=== PATIENT | male | born 1995 | race Caucasian/White ===

== ENCOUNTER 2019-04-19 01:50 | Emergency (ER) | payer SELFPAY ==
[~2019-04-19] VITALS: Ht 180.3 cm; Wt 77.1 kg
[2019-04-19 02:03] VITALS: BP 148/78
[2019-04-19] MEDS ORDERED: ADACEL VIAL IM ONE (02:15)
--- NOTE | 2019-04-19 02:17 | NUR ---
TETANUS GIVEN GIVEN IN RIGHT DELTOID LOT [id number] EXP 04/28/21 G ADACEL
[2019-04-19] MEDS ORDERED: LIDOCAINE 1% VIAL SQ ONE (02:30)
[2019-04-19] MEDS ORDERED: TENIVAC SYRINGE IM ONE (02:30)
[2019-04-19] MEDS ORDERED: TRIPLE ANTIBIOTIC OINTMENT TP ONE (02:48)
--- NOTE | 2019-04-19 02:58 | ER.PDOC ---
General Chief Complaint: Animal Bite Stated Complaint: DOG BITE Time seen by MD: 02:30 Source: patient Exam Limitations: no limitations History of Present Illness Initial Comments Patient has multiple puncture wounds of left arm/hand from dog bite wound. Injury happened three hours before arrival. Patient was bitten by his own dog who was trying to fight another dog. His dog has his rabies vaccine. Patient is unsure if he had his Tetanus shot. Patient was drinking alcohol prior to arrival. Onset: just prior to arrival Where: other (friends) Animal: dog Animal Appearance: appeared well Animal Immunizations: UTD Animal Disposition: Animal Known, Can Be Observed Context of Attack: animals fighting Severity of Injury: bitten Injury Location: upper extremity (LUE) Associated Symptoms: tingling, numbness, pain on movement Allergies: Coded Allergies: No Known Allergies (Unverified , 04/19/19) Past Medical History Medical History: no pertinent history Surgical History: no surgical history Social History Smoking: cigarettes Alcohol Use: occassionally Drug Use: marijuana Reviewed Nursing Reviewed: Vital Signs, Abn. Noted, Nursing Assessment Review of Systems Constitutional: no symptoms reported Eyes: no symptoms reported Ears: no symptoms reported Nose: no symptoms reported Mouth: no symptoms reported Throat: no symptoms reported Respiratory: no symptoms reported Cardiovascular: no symptoms reported Gastrointestinal: no symptoms reported Genitourinary: no symptoms reported Musculoskeletal: no symptoms reported Skin: lesions, other (laceration) Psychiatric/Neurological: no symptoms reported All Other Systems: Reviewed and Negative Physical Exam General Appearance: alert, no distress Skin: puncture, laceration Neuro/Vascular/Tendon: no vascular compromise, sensation nml, oriented x3, nml ROM, CN's nml as tested Psych: mood/affect nml HEENT: atraumatic Neck: uninjured, nml inspection Resp/CVS: chest non-tender Abdomen: nml inspection Back: nml inspection Extremities: see diagram Comments Patient has multiple small abrasion of left hand. Two deep/wide lacerations of left forearm. First is anterior/proximal to radial styloid of left forearm. Second laceration was on ulnar portion of forearm. ED LACERATION WOUND REPAIR # of Wounds/Lacerations Presen: 2 Wound Length (cm): 4 Wound cleaned: hibiclens (and copious irrigation with Normal Saline) Distal NVT: neuro intact, vasc intact Anesthesia type: local Anesthesia: 1% Lidocaine Volume Anesthetic (ccs): 8 Wound's Depth, Shape: superficial, linear Irrigated w/ Saline (ccs): 300 Wound Explored: no foreign body removed Tendon Intact: Yes Wound Debrided: minimal Wound Repaired With: sutures Suture Size/Type: 4:0, prolene Suture Style: simple Number of Sutures: 2 Layer Closure?: No Number Deep Layer Sutures: 1 Results/Orders Results/Orders Orders - SEBASTIAN MARQUEZ MD Tetanus-Diphtheria Toxoids/Pf (Tenivac S (04/19/19 02:30) Lidocaine Hcl (Lidocaine 1% Vial) (04/19/19 02:30) Ketorolac Tromethamine (Toradol) (04/19/19 03:30) Vital Signs Date Time Temp Pulse Resp B/P (MAP) Pulse Ox O2 Delivery O2 Flow Rate FiO2 04/19/19 02:03 98.4 118 16 98 Room Air 04/19/19 02:03 98.4 118 16 148/78 (101) 98 Room Air 04/19/19 02:03 98.4 118 16 Course Sepsis Screening Results: Posi: POSITIVE SEPSIS RISK Vitals & review Data Vital Sign - Last 24 Hours 04/19/19 04/19/19 04/19/19 02:03 02:03 02:03 Temp 98.4 98.4 98.4 Pulse 118 118 118 Resp 16 16 16 B/P (MAP) 148/78 (101) Pulse Ox 98 98 O2 Delivery Room Air Room Air Sepsis Infection Criteria Pres: None O2 Sat by Pulse Oximetry: 98 Departure Time of Disposition: 03:00 Disposition: 01 HOME, SELF-CARE Impression: Primary Impression: Dog bite Additional Impression: Laceration of forearm Condition: Stable Referrals: PCP,UNKNOWN (PCP) PRIMARY CARE PROVIDER Additional Instructions: Patient had dog bite wound of left forearm with multiple puncture wounds and lesions. 2 lacs required suturing. I informed patient that typically dog bite wounds are not closed; however, his lesions were to deep/wide to not be closed. Lesions were copiously irrigated with Normal Saline prior to closure. Patient agreeable to procedure. Patient was not sure about Tetanus status so TDAP given. After suturing, lesions had topical abx applied and appropriate dressings placed. Patient will be d/c on PO course of abx. Patient informed he needed to see PCP in 2-3 days. Patient can come back to ER for evaluation if needed. Patient given very strict return precautions. Patient was neurovascularly intact on presentation, following suturing, and after application of wound dressings. Patient counseled to take Ibuprofen for pain/swelling. Wound care instructions given prior to d/c. Duration or Time Spent with Pa: 60 minutes Problem Qualifiers Primary Impression: Dog bite Encounter type: initial encounter Qualified Codes: W54.0XXA - Bitten by dog, initial encounter Additional Impression: Laceration of forearm Encounter type: initial encounter Laterality: left Qualified Codes: S51.812A - Laceration without foreign body of left forearm, initial encounter SEBASTIAN MARQUEZ MD Apr 19, 2019 02:58
[2019-04-19] MEDS ORDERED: TORADOL ONE (03:06)
[2019-04-19 03:15] VITALS: BP 139/67
[2019-04-19] MEDS ORDERED: TORADOL IM ONE (03:30)
== END 2019-04-19 03:17 | disposition home or self-care (01) ==
LOC: ER 01:50
DX: S51.852A Open bite of left forearm, initial encounter (principal); S51.812A Laceration without foreign body of left forearm, initial encounter; W54.0XXA Bitten by dog, initial encounter; Y93.89 Activity, other specified; Y92.89 Other specified places as the place of occurrence of the external cause; Y99.8 Other external cause status; F12.10 Cannabis abuse, uncomplicated
CPT/HCPCS: 12002; 90471; 90715; 99283; J1885; 12001